=== PATIENT | male | born 1955 | race Asian ===

== ENCOUNTER 2018-10-13 09:41 | Outpatient (CLI) | payer OTHER ==
[2018-10-13 10:02] LABS: PLATELET COUNT 241 K/uL (142-355)
[2018-10-13 10:25] LABS: POTASSIUM 3.6 mmol/L (3.6-5.2)
== END 2018-10-13 20:22 | disposition home or self-care (01) ==
LOC: LABW 09:41
PROVIDERS: Physician Assistant
DX: E11.22 Type 2 diabetes mellitus with diabetic chronic kidney disease (principal); Z79.4 Long term (current) use of insulin; E78.2 Mixed hyperlipidemia; N40.0 Benign prostatic hyperplasia without lower urinary tract symptoms
CPT/HCPCS: 36415; 80053; 80061; 83036; 84153; 84439; 84443; 85027

== ENCOUNTER 2019-01-12 09:11 | Outpatient (CLI) | payer OTHER | END 2019-01-12 22:57 | disposition home or self-care (01) | LOC: RAD 09:11 | DX: M54.2 Cervicalgia (principal); M25.511 Pain in right shoulder ==

== ENCOUNTER 2019-02-16 09:42 | Outpatient (CLI) | payer OTHER | END 2019-02-16 22:45 | disposition home or self-care (01) | LOC: MRI 09:42 | DX: M25.511 Pain in right shoulder (principal) ==

== ENCOUNTER 2019-10-05 09:45 | Outpatient (CLI) | payer OTHER | END 2019-10-05 21:48 | disposition home or self-care (01) | LOC: RAD 09:45 | DX: M25.512 Pain in left shoulder (principal) ==

== ENCOUNTER 2019-11-20 15:41 | Emergency (ER) | payer OTHER ==
[~2019-11-20] VITALS: Ht 162.6 cm; Wt 61.2 kg
[2019-11-20 15:56] VITALS: TEMP 97.9
[2019-11-20 16:33] LABS: PLATELET COUNT 224 K/uL (142-355)
[2019-11-20 16:42] LABS: POTASSIUM 3.8 mmol/L (3.6-5.2); SODIUM 139 mmol/L (136-145)
[2019-11-20 17:03] LABS: PARTIAL THROMBOPLASTIN TIME 25.4 SECONDS (24.5-33.6)
[2019-11-20 22:00] VITALS: BP 124/84
== END 2019-11-20 22:13 | disposition home or self-care (01) ==
LOC: ED 15:41
PROVIDERS: Family Medicine
DX: I10 Essential (primary) hypertension (principal); R42 Dizziness and giddiness; R00.0 Tachycardia, unspecified; Z79.899 Other long term (current) drug therapy; Z51.81 Encounter for therapeutic drug level monitoring; F17.210 Nicotine dependence, cigarettes, uncomplicated
CPT/HCPCS: 36415; 80053; 81000; 82550; 84484; 85027; 85610; 85730; 93005; 99283; Q9963

== ENCOUNTER 2019-12-02 10:51 | Outpatient (CLI) | payer OTHER | END 2019-12-02 19:24 | disposition home or self-care (01) | LOC: RAD 10:51 | DX: J18.9 Pneumonia, unspecified organism (principal) ==

== ENCOUNTER 2020-07-04 10:11 | Outpatient (CLI) | payer OTHER ==
[2020-07-04 11:02] LABS: PLATELET COUNT 225 K/uL (142-355)
[2020-07-04 11:12] LABS: POTASSIUM 4.3 mmol/L (3.6-5.2)
== END 2020-07-04 23:32 | disposition home or self-care (01) ==
LOC: LABW 10:11
PROVIDERS: Internal Medicine
DX: E11.22 Type 2 diabetes mellitus with diabetic chronic kidney disease (principal); I10 Essential (primary) hypertension; N40.0 Benign prostatic hyperplasia without lower urinary tract symptoms
CPT/HCPCS: 36415; 80053; 81000; 82043; 82570; 83036; 84153; 84439; 84443; 85027

== ENCOUNTER 2020-10-11 10:44 | Outpatient (CLI) | payer OTHER ==
[2020-10-11 11:25] LABS: POTASSIUM 4.1 mmol/L (3.6-5.2)
[2020-10-11 11:49] LABS: PLATELET COUNT 213 K/uL (142-355)
== END 2020-10-11 22:09 | disposition home or self-care (01) ==
LOC: LABW 10:44
PROVIDERS: ATTEND Internal Medicine
DX: E11.9 Type 2 diabetes mellitus without complications (principal)
CPT/HCPCS: 36415; 80053; 80061; 81000; 82043; 83036; 84439; 84443; 85027

== ENCOUNTER 2020-12-27 12:05 | Outpatient (CLI) | payer OTHER ==
[2020-12-27 12:33] LABS: PLATELET COUNT 223 K/uL (142-355)
[2020-12-27 12:57] LABS: POTASSIUM 4.1 mmol/L (3.6-5.2)
== END 2020-12-27 21:53 | disposition home or self-care (01) ==
LOC: LAB 12:05
PROVIDERS: ATTEND Internal Medicine
DX: Z00.00 Encounter for general adult medical examination without abnormal findings (principal); Z12.5 Encounter for screening for malignant neoplasm of prostate; E11.22 Type 2 diabetes mellitus with diabetic chronic kidney disease
CPT/HCPCS: 80053; 80061; 81000; 83036; 84153; 84439; 84443; 85027

== ENCOUNTER 2021-02-03 08:48 | Outpatient (CLI) | payer OTHER | END 2021-02-03 21:46 | disposition home or self-care (01) | LOC: CT 08:48 | PROVIDERS: ATTEND Internal Medicine | DX: Z12.2 Encounter for screening for malignant neoplasm of respiratory organs (principal); Z13.6 Encounter for screening for cardiovascular disorders; Z87.891 Personal history of nicotine dependence | CPT/HCPCS: G0297-TC ==

== ENCOUNTER 2021-05-03 12:11 | Day surgery (SDC) | payer OTHER ==
[2021-04-26 09:22] LABS: PLATELET COUNT 188 K/uL (142-355)
[2021-04-26 09:38] LABS: POTASSIUM 3.8 mmol/L (3.6-5.2)
[~2021-05-03] VITALS: Ht 30.5 cm; Wt 0.5 kg
== END 2021-05-03 15:50 | disposition home or self-care (01) ==
LOC: OR 12:11
PROVIDERS: ATTEND Internal Medicine Gastroenterology
PROC: 0DBN8ZZ Excision of Sigmoid Colon, Via Natural or Artificial Opening Endoscopic (ICD-10-PCS; principal; 2021-05-03)
DX: K57.30 Diverticulosis of large intestine without perforation or abscess without bleeding (principal); D12.5 Benign neoplasm of sigmoid colon; K64.8 Other hemorrhoids; Z12.11 Encounter for screening for malignant neoplasm of colon; Z20.822 Contact with and (suspected) exposure to COVID-19
CPT/HCPCS: 80053; 85027; 87635; J2704; U0003

== ENCOUNTER 2021-07-06 08:25 | Outpatient (CLI) | payer OTHER ==
[2021-07-06 08:55] LABS: PLATELET COUNT 218 K/uL (142-355)
[2021-07-06 09:10] LABS: POTASSIUM 4.1 mmol/L (3.6-5.2)
== END 2021-07-06 16:00 | disposition home or self-care (01) ==
LOC: LABW 08:25
PROVIDERS: ATTEND Internal Medicine
DX: E11.9 Type 2 diabetes mellitus without complications (principal); N40.0 Benign prostatic hyperplasia without lower urinary tract symptoms
CPT/HCPCS: 36415; 80053; 80061; 83036; 84153; 84439; 84443; 85027

== ENCOUNTER 2021-09-20 07:17 | Emergency (ER) | payer OTHER ==
[~2021-09-20] VITALS: Ht 160 cm; Wt 59.0 kg
[2021-09-20 07:23] VITALS: TEMP 97
[2021-09-20 07:55] LABS: PLATELET COUNT 178 K/uL (142-355)
[2021-09-20 08:55] LABS: PARTIAL THROMBOPLASTIN TIME 26.9 SECONDS (24.5-33.6)
[2021-09-20 10:00] VITALS: BP 160/85
== END 2021-09-20 10:00 | disposition home or self-care (01) ==
LOC: ED 07:17
PROVIDERS: Hospitalist
DX: R10.32 Left lower quadrant pain (principal); K40.20 Bilateral inguinal hernia, without obstruction or gangrene, not specified as recurrent
CPT/HCPCS: 80053; 81000; 85027; 85610; 85730; 96360; 96375; 99284; J0360; J1170; J1885; J2405

== ENCOUNTER 2022-02-06 08:00 | Outpatient (CLI) | payer OTHER ==
[2022-02-06 08:28] LABS: PLATELET COUNT 214 K/uL (142-355)
[2022-02-06 09:08] LABS: POTASSIUM 4.2 mmol/L (3.6-5.2)
== END 2022-02-06 18:57 | disposition home or self-care (01) ==
LOC: LABW 08:00
PROVIDERS: ATTEND Internal Medicine
DX: E11.9 Type 2 diabetes mellitus without complications (principal)
CPT/HCPCS: 36415; 80053; 80061; 81000; 82043; 83036; 84439; 84443; 85027

== ENCOUNTER 2022-06-28 13:43 | Outpatient (CLI) | payer OTHER ==
[2022-06-28 14:16] LABS: PLATELET COUNT 202 K/uL (142-355)
[2022-06-28 14:20] LABS: POTASSIUM 4.5 mmol/L (3.6-5.2)
== END 2022-06-28 19:27 | disposition home or self-care (01) ==
LOC: LAB 13:43
PROVIDERS: ATTEND Internal Medicine
DX: E11.9 Type 2 diabetes mellitus without complications (principal)
CPT/HCPCS: 80053; 80061; 81002; 82043; 84439; 84443; 85027

== ENCOUNTER 2022-10-09 10:15 | Emergency (ER) | payer OTHER ==
[~2022-10-09] VITALS: Ht 160 cm; Wt 67.6 kg
[2022-10-09 10:15] VITALS: TEMP 98
[2022-10-09 10:36] LABS: PLATELET COUNT 198 K/uL (142-355)
[2022-10-09 10:42] LABS: POTASSIUM 4.1 mmol/L (3.6-5.2)
[2022-10-09 12:15] VITALS: BP 150/72
== END 2022-10-09 12:15 | disposition home or self-care (01) ==
LOC: ED 10:15
PROVIDERS: Emergency Medicine
DX: M75.02 Adhesive capsulitis of left shoulder (principal); I10 Essential (primary) hypertension; F17.210 Nicotine dependence, cigarettes, uncomplicated
CPT/HCPCS: 36415; 80053; 83880; 84484; 85027; 93005; 96374; 99284; J0360

== ENCOUNTER 2022-11-07 11:43 | Outpatient (CLI) | payer OTHER ==
[2022-11-07 12:02] LABS: PLATELET COUNT 217 K/uL (142-355)
[2022-11-07 13:03] LABS: POTASSIUM 4.4 mmol/L (3.6-5.2)
== END 2022-11-07 19:24 | disposition home or self-care (01) ==
LOC: LAB 11:43
PROVIDERS: ATTEND Internal Medicine
DX: E11.9 Type 2 diabetes mellitus without complications (principal)
CPT/HCPCS: 80053; 80061; 83036; 85027

== ENCOUNTER 2022-12-20 09:25 | Outpatient (CLI) | payer OTHER | END 2022-12-20 19:33 | disposition home or self-care (01) | LOC: RAD 09:25 | PROVIDERS: ATTEND Internal Medicine | DX: M25.511 Pain in right shoulder (principal) ==

== ENCOUNTER 2023-03-06 13:02 | Outpatient (CLI) | payer OTHER ==
[2023-03-06 13:35] LABS: PLATELET COUNT 226 K/uL (142-355)
[2023-03-06 14:05] LABS: POTASSIUM 4.2 mmol/L (3.6-5.2)
== END 2023-03-06 18:59 ==
LOC: LAB 13:02
PROVIDERS: ATTEND Internal Medicine
DX: E11.9 Type 2 diabetes mellitus without complications (principal)
CPT/HCPCS: 80053; 80061; 81002; 82043; 83036; 84439; 84443; 85027